=== PATIENT | female | born 1940 | race Caucasian/White ===

== ENCOUNTER 2021-12-29 07:11 | Day surgery (SDC) | payer MEDICARE, MEDICAID ==
[2021-12-26 12:06] LABS: BASOPHILS # (AUTO) 0.1 X10'3 (0-0.2); BASOPHILS % (AUTO) 1.4 % (0-1); EOSINOPHILS # (AUTO) 0.2 X10'3 (0-0.9); MEAN PLATELET VOLUME 8.4 FL (7.4-10.4); MONOCYTES # (AUTO) 0.6 X10'3 (0-0.9)
[2021-12-26 12:07] LABS: EOSINOPHILS % (AUTO) 2.6 % (0-6); LYMPHOCYTES # (AUTO) 2.2 X10'3 (1.1-4.8); LYMPHOCYTES % (AUTO) 30.5 % (21-51); MEAN CORPUSCULAR HEMOGLOBIN 30.7 PG (27.0-31.0); MEAN CORPUSCULAR HGB CONC 33.5 g/dL (33.0-36.5); MEAN CORPUSCULAR VOLUME 91.7 FL (78-98); MONOCYTES % (AUTO) 8.7 % (2-12); NEUTROPHILS # (AUTO) 4.2 X10'3 (1.8-7.7); NEUTROPHILS % (AUTO) 56.8 % (42-75); PRE OP HEMATOCRIT 41.7 % (35.0-45.0); PRE OP PLATELET COUNT 263 X10'3 (140-440); RED BLOOD COUNT 4.55 X10'6 (4.20-5.60); RED CELL DISTRIBUTION WIDTH 14.3 % (11.5-14.5)
[2021-12-26 12:40] LABS: ALBUMIN 3.7 G/DL (3.4-5.0); ALKALINE PHOSPHATASE 155 IU/L (46-116); BLOOD UREA NITROGEN 18 MG/DL (7-18); BUN/CREATININE RATIO 16.7 (6.6-38.0); CALCIUM 9.6 MG/DL (8.5-10.1); CHLORIDE 107 MMOL/L (99-107); CREATININE 1.08 MG/DL (0.40-0.90); PRE OP ALT 36 U/L (30-65); PRE OP ANION GAP 7 (8-16); PRE OP AST 26 U/L (10-37); PRE OP BILIRUB, TOTAL 0.4 MG/DL (0.0-1.0); PRE OP GLUCOSE 87 MG/DL (70-104); PRE OP POTASSIUM 4.4 MMOL/L (3.4-5.1); PRE OP SODIUM 141 MMOL/L (135-145); TOTAL CARBON DIOXIDE 26.6 MMOL/L (24-32); TOTAL PROTEIN 7.3 G/DL (6.4-8.2); eGFR 48 ML/MIN
[~2021-12-29] VITALS: Ht 152.4 cm; Wt 86.6 kg
[2021-12-29] VITALS (11 sets, daily range): BP systolic 155–172; BP diastolic 64–87
[~2021-12-29 07:11] MED LIST: ASPI-611 PO; BACL10TA2 PO; BUPIVAcaine/PF 5 mg/ml 10ml ONE; GABA300C PO; PANT40TA54 PO; ceFAZolin inj. 2,000 MG in dextrose 5%-water 100 ML IV ONE; famotidine 20mg tablet PO ONE; ringers solution, lacted 1,000 ML IV SCH
[2021-12-29] MEDS ORDERED: FENTANYL CITRATE/PF 50 MCG/1 ML VIAL ONE (09:33)
[2021-12-29] MEDS ORDERED: midazolam 1 mg/ML 2ml injection ONE (09:33)
[2021-12-29] MEDS ORDERED: ketorolac trometh. 30mg/ml inj. ONE (09:34)
[2021-12-29] MEDS ORDERED: BUPIVAcaine/PF 2.5 mg/ml (0.25%) 30ml vial ONE (09:55)
--- NOTE | 2021-12-29 10:27 | NUR ---
Received from OR via [facility], accompanied by Anesthesiologist DR RIBEIRO and report given by Anesthesiologist AND YOUTH OFFICER. PT DROWSY, NO S/S OF DISTRESS/DISCOMFORT, PT OPENS EYES TO LOUD VOICE THEN CLOSES HER EYES. RIGHT HAND/WRIST/FOREARM W/BIAS DRSG COVERING INCISION CDI. FINGERS PWD. RAILWAY PATROL OFFICER 1-2 SECONDS. Addendum: 12/29/21 at 1058 by Polly Whitlock RN Amended: Links added.
--- NOTE | 2021-12-29 12:07 | NUR ---
PT UP AND ABLE TO AMBULATE SAFELY, PT VOIDED. D/C INSTRUCTIONS GIVEN AND GONE OVER W/PT WHO VERBALIZED UNDERSTANDING. PT D/CD TO HOME VIA W/C TO PRIVATE VEHICLE W/O INCIDENT. Addendum: 12/29/21 at 1239 by Polly Whitlock RN Amended: Links added.
== END 2021-12-29 12:07 | disposition home or self-care (01) ==
LOC: PAS 07:11
PROVIDERS: ATTEND Orthopaedic Surgery Hand Surgery
DX: G56.01 Carpal tunnel syndrome, right upper limb (principal); D17.21 Benign lipomatous neoplasm of skin and subcutaneous tissue of right arm; J44.9 Chronic obstructive pulmonary disease, unspecified; K21.9 Gastro-esophageal reflux disease without esophagitis; Z79.899 Other long term (current) drug therapy; Z98.890 Other specified postprocedural states; Z98.49 Cataract extraction status, unspecified eye; Z90.710 Acquired absence of both cervix and uterus; Z88.8 Allergy status to other drugs, medicaments and biological substances; Z79.82 Long term (current) use of aspirin; Z96.653 Presence of artificial knee joint, bilateral
CPT/HCPCS: 25071; 64721; 80053; 82948; 85025; 93005; J0690; J1885; J2250; J3010; J3490; J7030; J7060; J7120; Z7506; Z7512; A4215